=== PATIENT | female | born 1995 | race Caucasian/White ===

== ENCOUNTER 2019-10-20 19:30 | Emergency (ER) | payer MEDICAID, OTHER ==
[~2019-10-20] VITALS: Ht 160 cm; Wt 79.4 kg
[2019-10-20 19:33] VITALS: BP 104/71
--- NOTE | 2019-10-20 19:47 | NUR ---
PT CAME TO THE ED C/O LOWER ABD PAIN X 2 DAYS. PT STATED "IT COULD BE BACAUSE OF MY IUD". IUD PLACED 7 YEARS AGO. SPOTTING SINCE YESTERDAY. -CLOTS. PT AAOX4, VSS, RESPIRATIONS EVEN AND UNLABORED ON RA W/ NAD NOTED. PT CONNECTED TO THE MONITOR AND POX. AWAITING FOR MD WILLIAM
[2019-10-20 20:06] LABS: APPEARANCE,URINE Clear (CLEAR); BILIRUBIN,URINE Negative (NEGATIVE); BLOOD, URINE Negative Ery/uL (NEGATIVE); COLOR,URINE Light yellow (YELLOW); KETONES,URINE Negative (NEGATIVE); LEUKOCYTE ESTERASE ,URINE Negative (NEGATIVE); NITRITE, URINE Negative (NEGATIVE); PH,URINE 5.5 (5.0-8.0); PROTEIN,URINE Negative (NEGATIVE); UGLUCOSE Negative (NEGATIVE); UROBILINOGEN,URINE 0.2 EU/dL (0.2)
--- NOTE | 2019-10-20 20:41 | NUR ---
Patient discharged to home in stable condition. Written and verbal after care instructions given. Patient verbalizes understanding of instruction.
== END 2019-10-20 20:42 | disposition home or self-care (01) ==
LOC: ER 19:36
DX: R10.2 Pelvic and perineal pain (principal); F17.200 Nicotine dependence, unspecified, uncomplicated
CPT/HCPCS: 81000-TC; 84703-TC

== ENCOUNTER 2020-01-12 18:49 | Emergency (ER) | payer MEDICAID, OTHER ==
[~2020-01-12] VITALS: Ht 160 cm; Wt 84.8 kg
[2020-01-12 19:05] VITALS: BP 119/81
== END 2020-01-12 19:51 | disposition home or self-care (01) ==
LOC: ER 18:51
DX: T81.30XA Disruption of wound, unspecified, initial encounter (principal)

== ENCOUNTER 2022-05-15 22:17 | Emergency (ER) | payer MEDICAID ==
[~2022-05-15] VITALS: Ht 160 cm; Wt 86.2 kg
[2022-05-15] MEDS ORDERED: CLIN300C12 PO (23:19)
[2022-05-15] MEDS ORDERED: IBUPROFEN 400 MG TABLET ONE (23:28)
[2022-05-15] MEDS ORDERED: CLINDAMYCIN HCL 150 MG CAPSULE ONE (23:28)
[2022-05-15] MEDS ORDERED: CLINDAMYCIN HCL 150 MG CAPSULE PO ONE (23:30)
[2022-05-15] MEDS ORDERED: IBUPROFEN 400 MG TABLET PO ONE (23:30)
[2022-05-15 23:32] VITALS: BP 136/80
--- NOTE | 2022-05-15 23:32 | NUR ---
Patient discharged to home in stable condition. Written and verbal after care instructions given. Patient verbalizes understanding of instruction.
== END 2022-05-15 23:34 | disposition home or self-care (01) ==
LOC: ER 22:22
DX: N73.2 Unspecified parametritis and pelvic cellulitis (principal)

== ENCOUNTER 2022-07-24 18:47 | Emergency (ER) | payer MEDICAID ==
[~2022-07-24] VITALS: Ht 160 cm; Wt 85.7 kg
[~2022-07-24 18:47] MED LIST: CLIN300C12 PO
--- NOTE | 2022-07-24 19:50 | NUR ---
Pt is noted alert, responsive as she came from home C/O Right Knee Swelling and pain x2days. Pt care continue as awaits MD orders.
--- NOTE | 2022-07-24 20:08 | NUR ---
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
[2022-07-24] MEDS ORDERED: ACETAMINOPHEN ES 500 MG TABLET ONE (20:15)
--- NOTE | 2022-07-24 20:18 | NUR ---
Tylenol 1, 000mg PO given as ordered as awaits X-Ray result. Pt care contiinue.
[2022-07-24] MEDS ORDERED: ACETAMINOPHEN ES 500 MG TABLET PO ONE (20:30)
[2022-07-24] MEDS ORDERED: KETO10TA2 PO (21:26)
--- NOTE | 2022-07-24 21:49 | NUR ---
Pt is stable as she is been discharge to home with all discharge instructions given .
[2022-07-24 21:50] VITALS: BP 122/82
== END 2022-07-24 21:52 | disposition home or self-care (01) ==
LOC: ER 18:53
DX: M25.561 Pain in right knee (principal); F17.200 Nicotine dependence, unspecified, uncomplicated; Z98.890 Other specified postprocedural states; Z79.899 Other long term (current) drug therapy
CPT/HCPCS: 73564-TC

== ENCOUNTER 2023-03-25 17:09 | Emergency (ER) | payer MEDICAID ==
[~2023-03-25] VITALS: Ht 160 cm; Wt 72.6 kg
[~2023-03-25 17:09] MED LIST changes: +KETO10TA2 PO
[2023-03-25 17:46] VITALS: BP 109/70; TEMP 98.6; O2SAT 100
[2023-03-25 18:42] LABS: BASOPHILS % (AUTO) 0.4 % (0.0-2.0); EOSINOPHILS # (AUTO) 0.1 K/uL (0.0-0.7); EOSINOPHILS % (AUTO) 0.9 % (0.0-6.0); HEMATOCRIT 37 % (33-45); HEMOGLOBIN 11.8 g/dL (11.5-14.8); LYMPHOCYTES # (AUTO) 1.9 K/uL (0.8-4.8); LYMPHOCYTES % (AUTO) 22.2 % (20.0-44.0); MEAN CORPUSCULAR HEMOGLOBIN 26 PG (26.0-33.0); MEAN CORPUSCULAR HGB CONC 32 g/dl (31.0-36.0); MEAN CORPUSCULAR VOLUME 82 fL (82-100); MONOCYTES # (AUTO) 0.7 K/uL (0.1-1.30); MONOCYTES % (AUTO) 8.1 % (2.0-12.0); NEUTROPHILS # (AUTO) 5.7 K/uL (1.8-8.9); NEUTROPHILS % (AUTO) 68.4 % (43.0-81.0); PLATELET COUNT (AUTO) 350 K/uL (150-450); RED BLOOD CELL COUNT(AUTO) 4.46 MIL/uL (4.0-5.2); RED CELL DISTRIBUTION WIDTH 15.4 % (11.5-15.0); WHITE BLOOD COUNT (AUTO) 8.4 K/uL (4.3-11.0)
[2023-03-25 18:54] LABS: CALCIUM, SERUM 8.7 mg/dL (8.5-10.1); CREATININE 0.8 mg/dL (0.6-1.3); POTASSIUM 3.6 mmol/L (3.5-5.1)
[2023-03-25 19:05] LABS: APPEARANCE,URINE CLEAR (CLEAR); BILIRUBIN,URINE NEGATIVE (NEGATIVE); BLOOD, URINE NEGATIVE Ery/uL (NEGATIVE); COLOR,URINE YELLOW (YELLOW); KETONES,URINE NEGATIVE (NEGATIVE); LEUKOCYTE ESTERASE ,URINE NEGATIVE (NEGATIVE); NITRITE, URINE NEGATIVE (NEGATIVE); PROTEIN,URINE NEGATIVE (NEGATIVE); UGLUCOSE NEGATIVE (NEGATIVE); UROBILINOGEN,URINE 0.2 EU/dL (0.2)
[2023-03-25 19:13] LABS: INR 1.01 (0.91-1.10); PARTIAL THROMBOPLASTIN TIME 26.4 SEC (24.3-34.3); PROTHROMBIN TIME 10.7 SECS (9.2-11.1)
[2023-03-25 19:14] LABS: ALBUMIN 3.6 g/dL (3.4-5.0); BILIRUBIN,DIRECT 0.1 mg/dL (0.0-0.2); BILIRUBIN,TOTAL 0.2 mg/dL (0.2-1.0)
== END 2023-03-25 20:29 | disposition home or self-care (01) ==
LOC: ER 17:15
DX: R10.2 Pelvic and perineal pain (principal); N93.9 Abnormal uterine and vaginal bleeding, unspecified; F17.200 Nicotine dependence, unspecified, uncomplicated
CPT/HCPCS: 36415; 76856-TC; 80048-TC; 80076-TC; 83690-TC; 84702-TC; 85025-TC; 85730-TC; 86850-TC; 87086-TC

== ENCOUNTER 2024-12-09 20:02 | Emergency (ER) | payer MEDICAID, OTHER ==
[~2024-12-09] VITALS: Ht 160 cm; Wt 83.9 kg
[2024-12-09 21:25] LABS: APPEARANCE,URINE CLEAR (CLEAR); BLOOD, URINE 2+ Ery/uL (NEGATIVE); LEUKOCYTE ESTERASE ,URINE NEGATIVE (NEGATIVE); NITRITE, URINE NEGATIVE (NEGATIVE); UGLUCOSE NEGATIVE (NEGATIVE)
[2024-12-09 21:27] LABS: PREGNANCY TEST URINE QUAL NEGATIVE (NEGATIVE)
[2024-12-09 21:37] LABS: ADD URINE CULTURE NO
[2024-12-09 21:52] LABS: PLATELET COUNT (AUTO) 335 K/uL (150-450); RED BLOOD CELL COUNT(AUTO) 4.68 MIL/uL (4.0-5.2); RED CELL DISTRIBUTION WIDTH 14.9 % (11.5-15.0); WHITE BLOOD COUNT (AUTO) 9.7 K/uL (4.3-11.0)
[2024-12-09 22:02] LABS: CALCIUM, SERUM 8.8 mg/dL (8.5-10.1); CREATININE 0.9 mg/dL (0.6-1.3); SODIUM SERUM 140.0 mmol/L (136-145); UREA NITROGEN, BLOOD 13.0 mg/dL (7-18)
[2024-12-09 22:05] LABS: INR 1.01 (0.91-1.10)
[2024-12-09 22:06] LABS: ASPARTATE AMINOTRANSFERASE 17.0 U/L (15-37); TOTAL PROTEIN, SERUM 8.5 g/dL (6.4-8.2)
[2024-12-09 23:14] VITALS: BP 119/72; TEMP 98; O2SAT 96
== END 2024-12-09 23:16 | disposition home or self-care (01) ==
LOC: ER 20:03
DX: N93.8 Other specified abnormal uterine and vaginal bleeding (principal); Z79.899 Other long term (current) drug therapy; Z86.2 Personal history of diseases of the blood and blood-forming organs and certain disorders involving the immune mechanism; F17.200 Nicotine dependence, unspecified, uncomplicated
CPT/HCPCS: 36415; 76856-TC; 80048-TC; 80076-TC; 81001; 84703-TC; 85025-TC; 85730-TC